=== PATIENT | male | born 1980 | race African-American/Black ===

== ENCOUNTER 2017-02-23 21:50 | Emergency (ER) | payer OTHER, SELFPAY ==
[2017-02-24] MEDS ORDERED: Ketorolac Tromethamine 60 MG/2 ML VIAL ONE (00:44)
== END 2017-02-24 01:35 | disposition home or self-care (01) ==
LOC: ERS 21:50
DX: K02.9 Dental caries, unspecified (principal); K01.1 Impacted teeth
CPT/HCPCS: 96372; J1885

== ENCOUNTER 2020-04-28 11:39 | Emergency (ER) | payer SELFPAY ==
[2020-04-28] MEDS ORDERED: Ondansetron PF 4 MG/2 ML Vial ONE (11:55)
--- NOTE | 2020-04-28 12:07 | RAD ---
RADIOGRAPH CHEST 1 VIEW: DATE: 04/28/2020 HISTORY: 39-year-old male status post syncope and dizziness. Concern for aspiration. FINDINGS: The thoracic aorta is tortuous and ectatic, greater than expected for this age group. This may indica te chronic hypertension.. There is no evidence of airspace density, pulmonary edema, or pneumothorax. The lateral costophrenic angles are not effaced. IMPRESSION: 1) No acute pulmonary findings. 2) ectasia of thoracic aorta.
[2020-04-28 12:11] LABS: #Eosinphils 0.1 thou/uL (0.0-0.7); #Lymphocytes 1.8 thou/uL (1.20-3.40); #Monocytes 0.4 thou/uL (0.11-0.59); #Neutrophils 1.7 thou/uL (1.40-6.50); %Basophils 0.8 % (0.0-1.0); %Eosinophils 2.6 % (0.0-10.0); %Lymphocytes 43.4 % (21.0-51.0); %Monocytes 10.7 % (0.0-10.0); %Neutrophils 42.6 % (42.0-75.0); Hemoglobin 13.4 g/dL (14.0-18.0); Mean Corpuscular HGB CONC 33.4 g/dL (32.0-36.0); Mean Corpuscular Hemoglobin 26.4 pg (27.0-31.0); Mean Corpuscular Volume 79.1 fL (78.0-98.0); Platelet Count 218 thou/uL (130-400); RBC Distribution Width 12.7 % (11.5-14.5); Red Blood Cell (RBC) Count 5.07 mill/uL (4.70-6.10)
[2020-04-28 12:28] LABS: ALT (SGPT) 26 U/L (8-55); AST (SGOT) 21 U/L (5-34); Albumin 4.3 g/dL (3.5-5.0); Alkaline Phosphatase 48 U/L (40-110); Anion Gap 10 mmol/L (10-20); BUN (Urea Nitrogen) 12 mg/dL (8.9-20.6); Bilirubin, Total 0.3 mg/dL (0.2-1.2); Calc. Creatinine Clearance 0 mL/min (70-130); Calcium 9.2 mg/dL (7.8-10.44); Carbon Dioxide 28 mmol/L (22-29); Chloride 105 mmol/L (98-107); Globulin 3.1 g/dL (2.4-3.5); Glucose 96 mg/dL (70-105); Potassium 3.8 mmol/L (3.5-5.1); Protein, Total 7.4 g/dL (6.0-8.3); Sodium 139 mmol/L (136-145)
== END 2020-04-28 14:37 | disposition home or self-care (01) ==
LOC: ERS 11:39
DX: R55 Syncope and collapse (principal); R11.0 Nausea
CPT/HCPCS: 71045; 80053; 84484; 85025; 93005; 96374; J2405